=== PATIENT | female | born 1945 | race African-American/Black ===

== ENCOUNTER 2018-01-13 06:11 | Emergency (ER) | payer MEDICARE ==
[~2018-01-13] VITALS: Ht 154.9 cm; Wt 57.6 kg
[2018-01-13] MEDS ORDERED: AMLODIPINE BESYL5 MG PO (06:40)
[2018-01-13] MEDS ORDERED: OXYBUTYNIN CHLOR5 MG PO (06:40)
== END 2018-01-13 06:59 | disposition home or self-care (01) ==
LOC: FSED 06:11
DX: H57.12 Ocular pain, left eye (principal); S05.02XA Injury of conjunctiva and corneal abrasion without foreign body, left eye, initial encounter; W22.8XXA Striking against or struck by other objects, initial encounter; I10 Essential (primary) hypertension; H26.9 Unspecified cataract
CPT/HCPCS: 99282